=== PATIENT | male | born 2000 | race Two or more races ===

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

== ENCOUNTER 2022-04-05 01:48 | Emergency (ER) | payer MEDICAID ==
[~2022-04-05] VITALS: Ht 165.1 cm; Wt 59.0 kg
[~2022-04-05 01:48] MED LIST: AZIT250T8 PO; IBUP600T27 PO
[2022-04-05 01:51] VITALS: BP 125/47
[2022-04-05] MEDS ORDERED: IBUP600T27 PO (03:35)
== END 2022-04-05 03:45 | disposition home or self-care (01) ==
LOC: ER 01:53
DX: M79.604 Pain in right leg (principal); Z79.1 Long term (current) use of non-steroidal anti-inflammatories (NSAID); Z79.2 Long term (current) use of antibiotics

== ENCOUNTER 2022-06-20 13:29 | Emergency (ER) | payer MEDICAID ==
[~2022-06-20] VITALS: Ht 165.1 cm; Wt 60.0 kg
[2022-06-20 15:34] VITALS: BP 125/73
[2022-06-20] MEDS ORDERED: IBUPROFEN 800 MG TAB PO ONE (16:15)
[2022-06-20] MEDS ORDERED: IBUP800T27 PO (17:13)
== END 2022-06-20 17:22 | disposition home or self-care (01) ==
LOC: ER 13:29
DX: S16.1XXA Strain of muscle, fascia and tendon at neck level, initial encounter (principal); S39.012A Strain of muscle, fascia and tendon of lower back, initial encounter; Z79.1 Long term (current) use of non-steroidal anti-inflammatories (NSAID); Z79.2 Long term (current) use of antibiotics; V43.52XA Car driver injured in collision with other type car in traffic accident, initial encounter; Y93.89 Activity, other specified; Y92.89 Other specified places as the place of occurrence of the external cause; Y99.8 Other external cause status
CPT/HCPCS: 72040; 72100

== ENCOUNTER 2022-09-04 13:32 | Emergency (ER) | payer MEDICAID ==
[~2022-09-04] VITALS: Ht 165.1 cm; Wt 59.0 kg
[~2022-09-04 13:32] MED LIST changes: +IBUP800T27 PO
[2022-09-04 14:13] VITALS: BP 122/42
[2022-09-04] MEDS ORDERED: IBUP800T27 PO (14:38)
[2022-09-04] MEDS ORDERED: AZIT500T66 PO (14:38)
== END 2022-09-04 15:00 | disposition home or self-care (01) ==
LOC: ER 13:32
DX: J03.90 Acute tonsillitis, unspecified (principal); Z88.1 Allergy status to other antibiotic agents; Z88.6 Allergy status to analgesic agent

== ENCOUNTER 2022-12-06 16:02 | Emergency (ER) | payer MEDICAID ==
[~2022-12-06] VITALS: Ht 165.1 cm; Wt 58.5 kg
[~2022-12-06 16:02] MED LIST changes: +AZIT500T66 PO
[2022-12-06 16:29] LABS: Basophils # (auto) 0.1 10 ^3/uL (0-0.2); Eosinophils # (auto) 0.4 10 ^3/uL (0-0.8); Eosinophils % (auto) 6.2 % (0.0-7.0); Hematocrit 46.7 % (41.0-53.0); Hemoglobin 16.4 g/dL (13.5-17.5); Lymphocytes # (auto) 1.6 10 ^3/uL (0.4-5.4); Lymphocytes % (auto) 26.4 % (10.0-50.0); Mean Corpuscular Hemoglobin 29.5 pg (28.0-32.0); Mean Corpuscular Hgb Conc. 35.1 g/dL (32.0-36.0); Mean Corpuscular Volume 83.9 fL (80.0-100.0); Monocytes # (auto) 0.8 10 ^3/uL (0-1.3); Monocytes % (auto) 13.3 % (0.0-12.0); Neutrophils # (auto) 3.1 10 ^3/uL (1.6-8.6); Neutrophils % (auto) 53.1 % (37.0-80.0); Nucleated Red Blood Cells % 0.2 %; Red Blood Cells 5.56 10^6/uL (4.5-5.90); Red Cell Distribution Width 12.8 % (11.8-14.3); White Blood Cell 5.9 10^3/uL (4.4-10.8)
[2022-12-06 16:46] LABS: Albumin 4.5 g/dL (3.4-5.0); Calcium 9.5 mg/dL (8.5-10.1); Potassium 3.7 mmol/L (3.5-5.1)
[2022-12-06 16:50] LABS: Bilirubin, Total 1.2 mg/dL (0.2-1.0); Total Protein 8.6 g/dL (6.4-8.2)
[2022-12-06 19:43] VITALS: BP 127/80
== END 2022-12-06 19:44 | disposition home or self-care (01) ==
LOC: ER 16:02
DX: R07.89 Other chest pain (principal); B34.9 Viral infection, unspecified
CPT/HCPCS: 36415; 71045; 80053; 83880; 84484; 85025; 93005

== ENCOUNTER 2022-12-27 17:56 | Emergency (ER) | payer MEDICAID, OTHER ==
[~2022-12-27] VITALS: Ht 167.6 cm; Wt 61.1 kg
[2022-12-27 18:23] VITALS: BP 128/70
[2022-12-27] MEDS ORDERED: SODIUM CHLORIDE 0.9% 1,000 ML IV ONE ×2 (18:30)
[2022-12-27] MEDS ORDERED: TETRACAINE HCL 0.5% OPTH(EYE) SOLN 4ML EACHEYE ONE (20:30)
[2022-12-27] MEDS ORDERED: FLUORESCEIN SOD OPTH TEST STRIP EACHEYE ONE (20:30)
[2022-12-27] MEDS ORDERED: ERY05OO OP (20:37)
[2022-12-27] MEDS ORDERED: FLUORESCEIN SOD OPTH TEST STRIP RIGHTEYE ONE (20:45)
== END 2022-12-27 21:51 | disposition home or self-care (01) ==
LOC: ER 17:56
DX: S05.02XA Injury of conjunctiva and corneal abrasion without foreign body, left eye, initial encounter (principal); S05.01XA Injury of conjunctiva and corneal abrasion without foreign body, right eye, initial encounter; F17.210 Nicotine dependence, cigarettes, uncomplicated; X58.XXXA Exposure to other specified factors, initial encounter; Y93.89 Activity, other specified; Y92.89 Other specified places as the place of occurrence of the external cause; Y99.0 Civilian activity done for income or pay
CPT/HCPCS: 96360; 96361; 99284; J7030